=== PATIENT | female | born 1940 | race Caucasian/White ===

== ENCOUNTER 2018-01-03 07:45 | Inpatient (IN) | payer MEDICARE, OTHER ==
[2018-01-03] VITALS (14 sets, daily range): BP systolic 96–169; BP diastolic 56–86
[~2018-01-03] VITALS: Ht 167.6 cm; Wt 75.6 kg
[2018-01-03] MEDS ORDERED: FENTANYL-0.9 % NACL/PF 100 ML IV PRN (09:19)
[2018-01-03] MEDS ORDERED: sodium phosphate inj. 15 MMOL in dextrose 5%-water 150 ML IV PRN (09:20)
[2018-01-03] MEDS ORDERED: ondansetron/PF 4mg/2ml inj IV PRN (09:20)
[2018-01-03] MEDS ORDERED: potassium Cl 20 mEq SR tablet PO PRN ×2 (09:20)
[2018-01-03] MEDS ORDERED: magnesium 4gm in 100ml NS 100 ML IV PRN (09:20)
[2018-01-03] MEDS ORDERED: magnesium Cl slow-release 64mg tablet PO PRN (09:20)
[2018-01-03] MEDS ORDERED: magnesium hydroxide 30ml (MOM) UD suspension PO PRN (09:20)
[2018-01-03] MEDS ORDERED: ipratropium/albuterol 3ml nebule ONE (09:20)
[2018-01-03] MEDS ORDERED: magnesium 2GM in 50ml NS 50 ML IV PRN (09:20)
[2018-01-03] MEDS ORDERED: acetaminophen 325mg tablet PO PRN (09:20)
[2018-01-03] MEDS ORDERED: potassium Cl 40MEQ/NS 500ml 500 ML IV PRN (09:20)
[2018-01-03] MEDS ORDERED: sodium phosphate inj. 30 MMOL in dextrose 5%-water 250 ML IV PRN (09:20)
[2018-01-03] MEDS ORDERED: morphine 4 MG/ML inj SYRINge IV PRN ×2 (09:20)
[2018-01-03] MEDS ORDERED: ipratropium/albuterol 3ml nebule NEB PRN (09:20)
[2018-01-03] MEDS ORDERED: Neutra Phos packet PO PRN (09:20)
[2018-01-03] MEDS ORDERED: linezolid 600mg/300ml PREMIX 300 ML IV ONE (09:30)
[2018-01-03] MEDS ORDERED: magnesium/D5W IVPB 100 ML IV PRN (09:40)
[2018-01-03] MEDS: pantoprazole 40 MG vial IV SCH (09:46)
[2018-01-03] MEDS: methylPREDNISolone sod succ 125mg/2ml vial IV SCH ×3 (09:47→20:00)
[2018-01-03 10:16] LABS: OXYGEN SATURATION (MIXED VEN) 78.3 % (60-80); PO2 MIXED VENOUS (TEMP COR) 41.6 mmHg (35-46)
[2018-01-03 10:16] LABS: ABG BASE EXCESS 5.9 mmol/L (-2.0-3.0); ABG HCO3 32.4 mmol/L (22.0-26.0); ABG OXYGEN SATURATION 94.7 % (95-98); ABG PCO2 (T) 54.8 mmHg (32.0-45.0); FCOHb 1.6 % (0.5-1.5); FMetHb 0.1 % (0.3-1.12); FO2Hb 93.1 % (94-100); MINUTE VOLUME 8 L/min; PEEP 8 cm H2O; RESPIRATORY RATE 20 b/min; RESPIRATORY RATE (OBSERVED) 20 b/min; TOTAL HEMOGLOBIN 14.2 G/dl (12.0-16.0)
[2018-01-03] MEDS ORDERED: CADD PCA waste documentation MC SCH (10:35)
[2018-01-03] MEDS ORDERED: HYDROmorphone/NS 1 mg/ml CADD 50 ML IV SCH (11:00)
[2018-01-03 11:06] LABS: BASOPHILS # (AUTO) 0.1 X10'3 (0-0.2); BASOPHILS % (AUTO) 0.8 % (0-1); EOSINOPHILS % (AUTO) 0 % (0-6); HEMATOCRIT 42.1 % (35.0-45.0); HEMOGLOBIN 13.5 g/dl (12.0-16.0); LYMPHOCYTES # (AUTO) 0.6 X10'3 (1.1-4.8); LYMPHOCYTES % (AUTO) 5.5 % (21-51); MEAN CORPUSCULAR HEMOGLOBIN 28.5 PG (27.0-31.0); MEAN CORPUSCULAR HGB CONC 31.9 % (33.0-36.5); MEAN CORPUSCULAR VOLUME 89.2 FL (78-98); MEAN PLATELET VOLUME 8.7 FL (7.4-10.4); MONOCYTES # (AUTO) 0.7 X10'3 (0-0.9); MONOCYTES % (AUTO) 6.2 % (2-12); NEUTROPHILS # (AUTO) 9.7 X10'3 (1.8-7.7); NEUTROPHILS % (AUTO) 87.5 % (42-75); PLATELET COUNT 159 X10'3 (140-440); RED BLOOD COUNT 4.72 X10'6 (4.20-5.60); RED CELL DISTRIBUTION WIDTH 17.5 % (11.5-14.5); WHITE BLOOD COUNT 11.1 X10'3 (4.5-11.0)
[2018-01-03] MEDS: ipratropium/albuterol 3ml nebule NEB SCH ×4 (11:07→23:26)
[2018-01-03] MEDS: apixaban 2.5mg tablet PO SCH ×2 (11:14→20:00)
[2018-01-03] MEDS ORDERED: morphine/NS 100mg/100ml bag 100 ML IV SCH (11:15)
[2018-01-03 11:19] LABS: ALANINE AMINOTRANSFERASE 24 U/L (12-78); ALBUMIN 2.6 G/DL (3.4-5.0); ALBUMIN/GLOBULIN RATIO 0.7 (1.1-1.5); ALKALINE PHOSPHATASE 86 IU/L (46-116); ANION GAP 4 (8-16); ASPARTATE AMINO TRANSFERASE 24 U/L (10-37); BILIRUBIN,TOTAL 0.5 MG/DL (0.1-1.0); BLOOD UREA NITROGEN 36 MG/DL (7-18); CALCIUM 8.1 MG/DL (8.5-10.1); CHLORIDE 99 MMOL/L (99-107); CREATININE 1.06 MG/DL (0.40-0.90); GLUCOSE 205 MG/DL (70-104); POTASSIUM 3.5 MMOL/L (3.5-5.1); SODIUM 139 MMOL/L (135-145); TOTAL PROTEIN 6.1 G/DL (6.4-8.2); eGFR 50 ML/MIN
[2018-01-03] MEDS: normal saline 1000ml 1,000 ML IV SCH ×2 (11:25→23:09)
[2018-01-03 11:31] LABS: LDL CHOLESTEROL 57 MG/DL (50-100); MAGNESIUM 1.5 MG/DL (1.5-2.4)
[2018-01-03 11:32] LABS: % IRON SATURATION 7 % (11-46); IRON 24 UG/DL (49-151); TOTAL IRON BINDING CAPACITY 347 UG/DL (259-388)
[2018-01-03 11:40] LABS: D-DIMER 3.17 MG/L FEU (0-0.50); INR 1.3 INR; PARTIAL THROMBOPLASTIN TIME 25 SECONDS (22-32)
[2018-01-03 12:13] LABS: HEMOGLOBIN A1C 7.5 % (4.5-6.2)
[2018-01-03 12:18] LABS: FERRITIN 28 NG/ML (8-252)
[2018-01-03 12:44] LABS: PLATELET COUNT 159 X10'3 (140-440)
[2018-01-03] MEDS ORDERED: UNABLE TO OBTAIN (13:17)
[2018-01-03] MEDS ORDERED: NO HOME MEDS (13:44)
[2018-01-03 15:07] LABS: CLARITY,URINE CLEAR (Clear); COLOR,URINE STRAW (Yellow); GLUCOSE, URINE NEGATIVE (Neg); KETONES,URINE NEGATIVE (Neg); LEUKOCYTE ESTERASE ,URINE NEGATIVE (Neg); NITRITES, URINE NEGATIVE (Neg); OCCULT BLOOD,URINE TRACE-INTACT (Neg); PROTEIN,URINE NEGATIVE (Neg); UROBILINOGEN,URINE 0.2 E.U/dL (0.2-1.0)
[2018-01-03 15:13] LABS: UA COLLECTION TYPE FOLEY CATH
[2018-01-03 15:14] LABS: BACTERIA,URINE 1+ /HPF (Neg); MUCUS STRANDS FEW /LPF (Neg); RBC,URINE 0-2 /HPF (0-2); SQUAMOUS EPITHELIAL CELL,UR FEW /LPF (FEW); WBC,URINE 0-4 /HPF (0-4)
[2018-01-03] MEDS: cefepime 1GM/NS ADD-VANTAGE 100 ML IV SCH ×2 (17:26→23:35)
[2018-01-03] MEDS ORDERED: dextrose 50%-water 50ml dispensing syringe IV PRN ×2 (19:55)
[2018-01-03] MEDS ORDERED: glucagon, human recombinant 1mg kit SUBCUT PRN (19:55)
[2018-01-03] MEDS ORDERED: dextrose ORAL solution 15 GM/59 ML bottle PO PRN ×2 (19:55)
[2018-01-03] MEDS ORDERED: MESSAGE TO PHARMACY PO ONE (19:55)
[2018-01-03] MEDS: lactobacillus rhamnosus 10,000 MMU CELLS/CAPSULE PO SCH (20:00)
[2018-01-03] MEDS ORDERED: heparin, porcine 5000 units/ml vial SQ SCH (20:00)
[2018-01-03] MEDS: linezolid 600mg/300ml PREMIX 300 ML IV SCH (20:00)
[2018-01-03] MEDS: docusate sodium 100mg/10ml UD cup PO SCH (20:00)
[2018-01-03] MEDS ORDERED: docusate sod 100mg capsule PO SCH (20:00)
[2018-01-03] MEDS: insulin regular, human vial - multi-dose SQ SCH (20:53)
[2018-01-03] MEDS: insulin glargine (Lantus) pen - multi-dose SQ SCH (20:54)
[2018-01-04] VITALS (24 sets, daily range): BP systolic 82–156; BP diastolic 55–83
[2018-01-04] MEDS: midazolam 100mg in NS 100ml 100 ML IV PRN (01:23)
[2018-01-04] MEDS: methylPREDNISolone sod succ 125mg/2ml vial IV SCH ×4 (01:25→20:06)
[2018-01-04] MEDS ORDERED: normal saline 500ml IV soln 1,000 ML IV ONE (02:15)
[2018-01-04] MEDS ORDERED: albumin (human) 25% 100 ML IV solution IV ONE (02:15)
[2018-01-04] MEDS: insulin regular, human vial - multi-dose SQ SCH ×2 (02:45→20:35)
[2018-01-04 03:12] LABS: BASOPHILS % (AUTO) 0.1 % (0-1); EOSINOPHILS % (AUTO) 0.1 % (0-6); HEMATOCRIT 40.7 % (35.0-45.0); HEMOGLOBIN 12.9 g/dl (12.0-16.0); LYMPHOCYTES # (AUTO) 0.3 X10'3 (1.1-4.8); LYMPHOCYTES % (AUTO) 5.7 % (21-51); MEAN CORPUSCULAR HEMOGLOBIN 28.1 PG (27.0-31.0); MEAN CORPUSCULAR HGB CONC 31.6 % (33.0-36.5); MEAN CORPUSCULAR VOLUME 88.8 FL (78-98); MONOCYTES # (AUTO) 0.1 X10'3 (0-0.9); MONOCYTES % (AUTO) 2.7 % (2-12); NEUTROPHILS # (AUTO) 4.5 X10'3 (1.8-7.7); NEUTROPHILS % (AUTO) 91.4 % (42-75); PLATELET COUNT 155 X10'3 (140-440); RED BLOOD COUNT 4.58 X10'6 (4.20-5.60); WHITE BLOOD COUNT 4.9 X10'3 (4.5-11.0)
[2018-01-04] MEDS: ipratropium/albuterol 3ml nebule NEB SCH ×6 (03:13→23:16)
[2018-01-04 03:14] LABS: ALANINE AMINOTRANSFERASE 20 U/L (12-78); ALBUMIN/GLOBULIN RATIO 0.6 (1.1-1.5); ALKALINE PHOSPHATASE 72 IU/L (46-116); ANION GAP 7 (8-16); ASPARTATE AMINO TRANSFERASE 21 U/L (10-37); BILIRUBIN,TOTAL 0.4 MG/DL (0.1-1.0); BLOOD UREA NITROGEN 29 MG/DL (7-18); BUN/CREATININE RATIO 31.5 (6.6-38.0); CALCIUM 7.5 MG/DL (8.5-10.1); CHLORIDE 101 MMOL/L (99-107); CREATININE 0.92 MG/DL (0.40-0.90); GLUCOSE 253 MG/DL (70-104); MAGNESIUM 1.6 MG/DL (1.5-2.4); PHOSPHORUS 2.8 MG/DL (2.3-4.5); POTASSIUM 3.3 MMOL/L (3.5-5.1); SODIUM 141 MMOL/L (135-145); TOTAL CARBON DIOXIDE 33.4 MMOL/L (24-32); TOTAL PROTEIN 5.2 G/DL (6.4-8.2); eGFR 59 ML/MIN
[2018-01-04 03:25] LABS: ABG BASE EXCESS 6.9 mmol/L (-2.0-3.0); ABG HCO3 32.4 mmol/L (22.0-26.0); ABG OXYGEN SATURATION 96.5 % (95-98); ABG PCO2 (T) 47.2 mmHg (32.0-45.0); ABG PH (T) 7.449 (7.350-7.450); ABG PO2 (T) 80.9 mmHg (83-108); ALLEN'S TEST Positive; FCOHb 0.4 % (0.5-1.5); FMetHb 0.3 % (0.3-1.12); FO2Hb 95.8 % (94-100); MINUTE VOLUME 6 L/min; PATIENT TEMPERATURE 35.7; PEEP 8 cm H2O; RESPIRATORY RATE 20 b/min; RESPIRATORY RATE (OBSERVED) 20 b/min; TOTAL HEMOGLOBIN 13.1 G/dl (12.0-16.0)
[2018-01-04] MEDS: Dextrose 10%-water IV solution 1,000 ML IV SCH (04:37)
[2018-01-04] MEDS ORDERED: potassium Cl 40MEQ/NS 500ml 500 ML IV ONE (04:39)
[2018-01-04] MEDS: pantoprazole 40 MG vial IV SCH (07:16)
[2018-01-04] MEDS: lactobacillus rhamnosus 10,000 MMU CELLS/CAPSULE PO SCH ×2 (07:16→20:06)
[2018-01-04] MEDS: cefepime 1GM/NS ADD-VANTAGE 100 ML IV SCH ×3 (07:16→23:35)
[2018-01-04] MEDS: docusate sodium 100mg/10ml UD cup PO SCH ×2 (07:16→20:06)
[2018-01-04] MEDS: linezolid 600mg/300ml PREMIX 300 ML IV SCH (07:16)
[2018-01-04] MEDS: apixaban 2.5mg tablet PO SCH ×2 (07:17→20:06)
[2018-01-04] MEDS ORDERED: levoFLOXACIN 500mg tablet PO ONE (08:55)
[2018-01-04] MEDS: normal saline 1000ml 1,000 ML IV SCH (09:21)
[2018-01-04] MEDS ORDERED: furosemide 40mg/4ml inj IV ONE (11:05)
[2018-01-04] MEDS: nystatin 15 GM powder TP SCH ×2 (13:00→20:37)
[2018-01-04] MEDS: metoclopramide 5 mg/ml inj IV SCH ×2 (14:00→20:06)
[2018-01-04] MEDS: mineral oil/petrolatum ophthal oint EACHEYE SCH ×2 (14:00→20:06)
[2018-01-04] MEDS: [UNRECOGNIZED DRUG - REMARK] IV SCH ×4 (15:44)
[2018-01-04] MEDS: methylnaltrexone br 12mg/0.6ml inj***SubQ only SQ SCH (15:45)
[2018-01-04] MEDS: potassium Cl 40MEQ/250ML bag 250 ML IV PRN (20:31)
[2018-01-04] MEDS: insulin glargine (Lantus) pen - multi-dose SQ SCH (20:37)
[2018-01-05] VITALS (24 sets, daily range): BP systolic 91–152; BP diastolic 45–76
[2018-01-05] MEDS: FENTANYL-0.9 % NACL/PF 100 ML IV PRN (00:10)
[2018-01-05] MEDS: methylPREDNISolone sod succ 125mg/2ml vial IV SCH ×4 (02:43→20:17)
[2018-01-05] MEDS: mineral oil/petrolatum ophthal oint EACHEYE SCH ×4 (02:43→20:17)
[2018-01-05] MEDS: metoclopramide 5 mg/ml inj IV SCH ×4 (02:43→20:17)
[2018-01-05] MEDS: insulin regular, human vial - multi-dose SQ SCH ×4 (02:56→20:49)
[2018-01-05] MEDS: ipratropium/albuterol 3ml nebule NEB SCH ×6 (03:12→23:21)
[2018-01-05 03:26] LABS: ABG BASE EXCESS 4.2 mmol/L (-2.0-3.0); ABG HCO3 32.3 mmol/L (22.0-26.0); ABG OXYGEN SATURATION 93.8 % (95-98); ABG PCO2 (T) 63.8 mmHg (32.0-45.0); ABG PO2 (T) 75.4 mmHg (83-108); ALLEN'S TEST Positive; FCOHb 0.6 % (0.5-1.5); FMetHb 0.2 % (0.3-1.12); MINUTE VOLUME 5 L/min; PATIENT TEMPERATURE 36.5; PEEP 8 cm H2O; RESPIRATORY RATE 20 b/min; RESPIRATORY RATE (OBSERVED) 20 b/min; TOTAL HEMOGLOBIN 13.7 G/dl (12.0-16.0)
[2018-01-05 04:02] LABS: BASOPHILS % (AUTO) 0.1 % (0-1); EOSINOPHILS % (AUTO) 0 % (0-6); HEMATOCRIT 40.3 % (35.0-45.0); HEMOGLOBIN 12.5 g/dl (12.0-16.0); LYMPHOCYTES # (AUTO) 0.3 X10'3 (1.1-4.8); MEAN CORPUSCULAR HEMOGLOBIN 27.6 PG (27.0-31.0); MEAN CORPUSCULAR VOLUME 88.9 FL (78-98); MEAN PLATELET VOLUME 8.7 FL (7.4-10.4); MONOCYTES # (AUTO) 0.4 X10'3 (0-0.9); MONOCYTES % (AUTO) 5.4 % (2-12); NEUTROPHILS # (AUTO) 6.2 X10'3 (1.8-7.7); NEUTROPHILS % (AUTO) 90.5 % (42-75); PLATELET COUNT 157 X10'3 (140-440); RED BLOOD COUNT 4.54 X10'6 (4.20-5.60); RED CELL DISTRIBUTION WIDTH 17.5 % (11.5-14.5); WHITE BLOOD COUNT 6.9 X10'3 (4.5-11.0)
[2018-01-05 04:18] LABS: ALANINE AMINOTRANSFERASE 19 U/L (12-78); ALBUMIN 2.7 G/DL (3.4-5.0); ALBUMIN/GLOBULIN RATIO 0.9 (1.1-1.5); ALKALINE PHOSPHATASE 58 IU/L (46-116); ANION GAP 4 (8-16); ASPARTATE AMINO TRANSFERASE 18 U/L (10-37); BILIRUBIN,TOTAL 0.4 MG/DL (0.1-1.0); BLOOD UREA NITROGEN 23 MG/DL (7-18); BUN/CREATININE RATIO 28.8 (6.6-38.0); CALCIUM 7.9 MG/DL (8.5-10.1); CHLORIDE 104 MMOL/L (99-107); GLUCOSE 191 MG/DL (70-104); MAGNESIUM 1.7 MG/DL (1.5-2.4); PHOSPHORUS 2.5 MG/DL (2.3-4.5); POTASSIUM 4.4 MMOL/L (3.5-5.1); PREALBUMIN 13.3 MG/DL (19-36); SODIUM 143 MMOL/L (135-145); TOTAL CARBON DIOXIDE 34.6 MMOL/L (24-32); TOTAL PROTEIN 5.6 G/DL (6.4-8.2); eGFR 69 ML/MIN
[2018-01-05] MEDS: Dextrose 10%-water IV solution 1,000 ML IV SCH (05:30)
[2018-01-05] MEDS ORDERED: furosemide 40mg/4ml inj IV SCH (08:00)
[2018-01-05] MEDS: pantoprazole 40 MG vial IV SCH (08:03)
[2018-01-05] MEDS: docusate sodium 100mg/10ml UD cup PO SCH ×2 (08:04→20:17)
[2018-01-05] MEDS: apixaban 2.5mg tablet PO SCH ×2 (08:04→14:53)
[2018-01-05] MEDS: lactobacillus rhamnosus 10,000 MMU CELLS/CAPSULE PO SCH ×2 (08:04→20:17)
[2018-01-05] MEDS: cefepime 1GM/NS ADD-VANTAGE 100 ML IV SCH ×2 (08:05→16:04)
[2018-01-05] MEDS: furosemide 40mg/4ml inj IV SCH ×2 (08:21→16:03)
[2018-01-05] MEDS: nystatin 15 GM powder TP SCH ×3 (08:30→21:03)
[2018-01-05 10:10] LABS: ABG BASE EXCESS 6.2 mmol/L (-2.0-3.0); ABG HCO3 33.6 mmol/L (22.0-26.0); ABG OXYGEN SATURATION 92.8 % (95-98); ABG PCO2 (T) 59.3 mmHg (32.0-45.0); ABG PH (T) 7.369 (7.350-7.450); ALLEN'S TEST Positive; FCOHb 0.8 % (0.5-1.5); FMetHb 0.3 % (0.3-1.12); FO2Hb 91.8 % (94-100); MINUTE VOLUME 7 L/min; PATIENT TEMPERATURE 36.4; PEEP 8 cm H2O; RESPIRATORY RATE 20 b/min; RESPIRATORY RATE (OBSERVED) 20 b/min; TIDAL VOLUME 325 mL; TOTAL HEMOGLOBIN 14.2 G/dl (12.0-16.0)
[2018-01-05] MEDS ORDERED: ipratropium/albuterol 3ml nebule NEB SCH (11:00)
[2018-01-05] MEDS: [UNRECOGNIZED DRUG - REMARK] IV SCH ×4 (12:21)
[2018-01-05] MEDS: levoFLOXACIN 500mg tablet PO SCH (12:25)
[2018-01-05] MEDS: insulin glargine (Lantus) pen - multi-dose SQ SCH (20:51)
[2018-01-06] VITALS (26 sets, daily range): BP systolic 103–170; BP diastolic 59–93
[2018-01-06] MEDS: furosemide 40mg/4ml inj IV SCH ×4 (00:27→23:12)
[2018-01-06] MEDS: cefepime 1GM/NS ADD-VANTAGE 100 ML IV SCH ×4 (00:28→23:12)
[2018-01-06] MEDS: metoclopramide 5 mg/ml inj IV SCH ×4 (02:03→20:56)
[2018-01-06] MEDS: mineral oil/petrolatum ophthal oint EACHEYE SCH ×4 (02:03→20:56)
[2018-01-06] MEDS: methylPREDNISolone sod succ 125mg/2ml vial IV SCH ×4 (02:03→20:56)
[2018-01-06] MEDS: insulin regular, human vial - multi-dose SQ SCH ×4 (02:14→21:01)
[2018-01-06] MEDS: ipratropium/albuterol 3ml nebule NEB SCH ×6 (02:56→23:17)
[2018-01-06 03:06] LABS: BASOPHILS % (AUTO) 0 % (0-1); EOSINOPHILS % (AUTO) 0 % (0-6); HEMATOCRIT 44.7 % (35.0-45.0); LYMPHOCYTES # (AUTO) 0.3 X10'3 (1.1-4.8); LYMPHOCYTES % (AUTO) 3.3 % (21-51); MEAN CORPUSCULAR HEMOGLOBIN 27.7 PG (27.0-31.0); MEAN CORPUSCULAR HGB CONC 31.3 % (33.0-36.5); MEAN CORPUSCULAR VOLUME 88.5 FL (78-98); MEAN PLATELET VOLUME 8.7 FL (7.4-10.4); MONOCYTES # (AUTO) 0.4 X10'3 (0-0.9); MONOCYTES % (AUTO) 3.9 % (2-12); NEUTROPHILS # (AUTO) 8.8 X10'3 (1.8-7.7); NEUTROPHILS % (AUTO) 92.8 % (42-75); PLATELET COUNT 188 X10'3 (140-440); RED BLOOD COUNT 5.05 X10'6 (4.20-5.60); RED CELL DISTRIBUTION WIDTH 17.9 % (11.5-14.5); WHITE BLOOD COUNT 9.5 X10'3 (4.5-11.0)
[2018-01-06 03:21] LABS: ALANINE AMINOTRANSFERASE 18 U/L (12-78); ALBUMIN 2.8 G/DL (3.4-5.0); ALBUMIN/GLOBULIN RATIO 0.8 (1.1-1.5); ALKALINE PHOSPHATASE 64 IU/L (46-116); ANION GAP 6 (8-16); ASPARTATE AMINO TRANSFERASE 16 U/L (10-37); BILIRUBIN,TOTAL 0.6 MG/DL (0.1-1.0); BLOOD UREA NITROGEN 38 MG/DL (7-18); BUN/CREATININE RATIO 50.7 (6.6-38.0); CALCIUM 7.9 MG/DL (8.5-10.1); CHLORIDE 99 MMOL/L (99-107); CREATININE 0.75 MG/DL (0.40-0.90); GLUCOSE 137 MG/DL (70-104); MAGNESIUM 1.7 MG/DL (1.5-2.4); PHOSPHORUS 2.6 MG/DL (2.3-4.5); SODIUM 142 MMOL/L (135-145); TOTAL CARBON DIOXIDE 36.7 MMOL/L (24-32); TOTAL PROTEIN 6.1 G/DL (6.4-8.2); eGFR 75 ML/MIN
[2018-01-06 03:31] LABS: ABG BASE EXCESS 9.8 mmol/L (-2.0-3.0); ABG HCO3 37.1 mmol/L (22.0-26.0); ABG OXYGEN SATURATION 93.3 % (95-98); ABG PH (T) 7.402 (7.350-7.450); ABG PO2 (T) 70.4 mmHg (83-108); ALLEN'S TEST Positive; FCOHb 0.8 % (0.5-1.5); FMetHb 0.5 % (0.3-1.12); FO2Hb 92.1 % (94-100); MINUTE VOLUME 7 L/min; PATIENT TEMPERATURE 37.2; PEEP 8 cm H2O; RESPIRATORY RATE 20 b/min; RESPIRATORY RATE (OBSERVED) 20 b/min; TIDAL VOLUME 325 mL; TOTAL HEMOGLOBIN 14.8 G/dl (12.0-16.0)
[2018-01-06] MEDS ORDERED: potassium Cl 40MEQ/250ML bag 250 ML IV ONE (03:57)
[2018-01-06] MEDS: midazolam 100mg in NS 100ml 100 ML IV PRN (04:12)
[2018-01-06] MEDS: FENTANYL-0.9 % NACL/PF 100 ML IV PRN (04:12)
[2018-01-06] MEDS: methylnaltrexone br 12mg/0.6ml inj***SubQ only SQ SCH (06:43)
[2018-01-06] MEDS: docusate sodium 100mg/10ml UD cup PO SCH ×2 (06:43→19:56)
[2018-01-06] MEDS: potassium Cl 40MEQ/250ML bag 250 ML IV PRN (07:17)
[2018-01-06] MEDS: lactobacillus rhamnosus 10,000 MMU CELLS/CAPSULE PO SCH ×2 (07:17→20:56)
[2018-01-06] MEDS: nystatin 15 GM powder TP SCH ×3 (07:17→21:04)
[2018-01-06] MEDS: pantoprazole 40 MG vial IV SCH (07:17)
[2018-01-06] MEDS: apixaban 2.5mg tablet PO SCH ×2 (08:00→20:57)
[2018-01-06] MEDS: [UNRECOGNIZED DRUG - REMARK] IV SCH ×4 (08:47)
[2018-01-06 11:39] LABS: POTASSIUM 3.4 MMOL/L (3.5-5.1)
[2018-01-06 11:41] LABS: TROPONIN I 0.64 NG/ML (0.0-0.05)
[2018-01-06] MEDS: levoFLOXACIN 500mg tablet PO SCH (11:54)
[2018-01-06] MEDS: insulin glargine (Lantus) pen - multi-dose SQ SCH (21:03)
[2018-01-07] VITALS (24 sets, daily range): BP systolic 98–164; BP diastolic 49–89
[2018-01-07 00:57] LABS: BASOPHILS # (AUTO) 0.1 X10'3 (0-0.2); BASOPHILS % (AUTO) 0.8 % (0-1); EOSINOPHILS % (AUTO) 0 % (0-6); HEMATOCRIT 44.2 % (35.0-45.0); HEMOGLOBIN 13.7 g/dl (12.0-16.0); LYMPHOCYTES # (AUTO) 0.3 X10'3 (1.1-4.8); LYMPHOCYTES % (AUTO) 4.6 % (21-51); MEAN CORPUSCULAR HEMOGLOBIN 27.7 PG (27.0-31.0); MEAN CORPUSCULAR VOLUME 89.3 FL (78-98); MEAN PLATELET VOLUME 8.8 FL (7.4-10.4); MONOCYTES # (AUTO) 0.5 X10'3 (0-0.9); MONOCYTES % (AUTO) 7.6 % (2-12); NEUTROPHILS # (AUTO) 6.2 X10'3 (1.8-7.7); PLATELET COUNT 173 X10'3 (140-440); RED BLOOD COUNT 4.95 X10'6 (4.20-5.60); WHITE BLOOD COUNT 7.1 X10'3 (4.5-11.0)
[2018-01-07 00:58] LABS: ALANINE AMINOTRANSFERASE 18 U/L (12-78); ALBUMIN 2.6 G/DL (3.4-5.0); ALBUMIN/GLOBULIN RATIO 0.9 (1.1-1.5); ALKALINE PHOSPHATASE 63 IU/L (46-116); ANION GAP 2 (8-16); ASPARTATE AMINO TRANSFERASE 19 U/L (10-37); BILIRUBIN,TOTAL 0.5 MG/DL (0.1-1.0); BLOOD UREA NITROGEN 44 MG/DL (7-18); CALCIUM 8.1 MG/DL (8.5-10.1); CHLORIDE 99 MMOL/L (99-107); GLUCOSE 147 MG/DL (70-104); MAGNESIUM 1.6 MG/DL (1.5-2.4); PHOSPHORUS 2.5 MG/DL (2.3-4.5); SODIUM 144 MMOL/L (135-145); TOTAL PROTEIN 5.6 G/DL (6.4-8.2); eGFR 69 ML/MIN
[2018-01-07 01:03] LABS: POTASSIUM 2.5 MMOL/L (3.5-5.1)
[2018-01-07 01:04] LABS: TOTAL CARBON DIOXIDE 42.6 MMOL/L (24-32)
[2018-01-07] MEDS ORDERED: potassium Cl 40MEQ/250ML bag 500 ML IV ONE (01:24)
[2018-01-07] MEDS: mineral oil/petrolatum ophthal oint EACHEYE SCH ×4 (01:59→20:28)
[2018-01-07] MEDS: metoclopramide 5 mg/ml inj IV SCH ×4 (02:00→20:29)
[2018-01-07] MEDS: methylPREDNISolone sod succ 125mg/2ml vial IV SCH ×4 (02:00→20:29)
[2018-01-07 02:06] LABS: ABG HCO3 33.5 mmol/L (22.0-26.0); ABG PCO2 (T) 50.2 mmHg (32.0-45.0); ABG PH (T) 7.443 (7.350-7.450); ABG PO2 (T) 64.9 mmHg (83-108); ALLEN'S TEST Positive; FCOHb 0.9 % (0.5-1.5); FMetHb 0.2 % (0.3-1.12); MINUTE VOLUME 7 L/min; PATIENT TEMPERATURE 37.2; PEEP 8 cm H2O; RESPIRATORY RATE 20 b/min; RESPIRATORY RATE (OBSERVED) 20 b/min; TIDAL VOLUME 325 mL; TOTAL HEMOGLOBIN 14.6 G/dl (12.0-16.0)
[2018-01-07] MEDS: insulin regular, human vial - multi-dose SQ SCH ×4 (02:21→20:57)
[2018-01-07] MEDS: ipratropium/albuterol 3ml nebule NEB SCH ×6 (03:17→23:10)
[2018-01-07] MEDS: potassium Cl 40MEQ/250ML bag 250 ML IV PRN ×3 (03:50→12:02)
[2018-01-07] MEDS: lactobacillus rhamnosus 10,000 MMU CELLS/CAPSULE PO SCH ×2 (07:18→20:28)
[2018-01-07] MEDS: pantoprazole 40 MG vial IV SCH (07:18)
[2018-01-07] MEDS: furosemide 40mg/4ml inj IV SCH ×2 (07:18→16:05)
[2018-01-07] MEDS: docusate sodium 100mg/10ml UD cup PO SCH ×2 (07:19→20:00)
[2018-01-07] MEDS: cefepime 1GM/NS ADD-VANTAGE 100 ML IV SCH ×2 (07:19→16:05)
[2018-01-07] MEDS: nystatin 15 GM powder TP SCH ×3 (07:19→20:28)
[2018-01-07] MEDS: apixaban 2.5mg tablet PO SCH ×2 (07:19→20:28)
[2018-01-07] MEDS: [UNRECOGNIZED DRUG - REMARK] IV SCH ×4 (08:20)
[2018-01-07] MEDS: levoFLOXACIN 500mg tablet PO SCH (11:42)
[2018-01-07] MEDS: insulin glargine (Lantus) pen - multi-dose SQ SCH (20:58)
[2018-01-07] MEDS: midazolam 100mg in NS 100ml 100 ML IV PRN (22:41)
[2018-01-07] MEDS: FENTANYL-0.9 % NACL/PF 100 ML IV PRN (22:43)
[2018-01-08] VITALS (24 sets, daily range): BP systolic 118–168; BP diastolic 47–90
[2018-01-08] MEDS: cefepime 1GM/NS ADD-VANTAGE 100 ML IV SCH ×4 (00:41→23:23)
[2018-01-08] MEDS: furosemide 40mg/4ml inj IV SCH ×4 (00:41→23:22)
[2018-01-08] MEDS: mineral oil/petrolatum ophthal oint EACHEYE SCH ×4 (02:57→20:47)
[2018-01-08] MEDS: metoclopramide 5 mg/ml inj IV SCH ×4 (02:57→20:47)
[2018-01-08] MEDS: methylPREDNISolone sod succ 125mg/2ml vial IV SCH ×4 (02:57→20:47)
[2018-01-08] MEDS: insulin regular, human vial - multi-dose SQ SCH ×4 (03:27→21:11)
[2018-01-08 03:50] LABS: ABG BASE EXCESS 18.2 mmol/L (-2.0-3.0); ABG HCO3 44.8 mmol/L (22.0-26.0); ABG OXYGEN SATURATION 91.3 % (95-98); ABG PCO2 (T) 58.2 mmHg (32.0-45.0); ABG PH (T) 7.504 (7.350-7.450); ABG PO2 (T) 59.5 mmHg (83-108); FCOHb 1.1 % (0.5-1.5); FMetHb 0.1 % (0.3-1.12); FO2Hb 90.2 % (94-100); MINUTE VOLUME 7 L/min; PEEP 8 cm H2O; RESPIRATORY RATE 20 b/min; RESPIRATORY RATE (OBSERVED) 20 b/min; TIDAL VOLUME 325 mL; TOTAL HEMOGLOBIN 14.8 G/dl (12.0-16.0)
[2018-01-08] MEDS: ipratropium/albuterol 3ml nebule NEB SCH ×6 (03:50→23:18)
[2018-01-08 04:15] LABS: BASOPHILS % (AUTO) 0 % (0-1); EOSINOPHILS % (AUTO) 0.5 % (0-6); HEMATOCRIT 43.9 % (35.0-45.0); HEMOGLOBIN 13.8 g/dl (12.0-16.0); LYMPHOCYTES # (AUTO) 0.4 X10'3 (1.1-4.8); LYMPHOCYTES % (AUTO) 5.5 % (21-51); MEAN CORPUSCULAR HEMOGLOBIN 27.5 PG (27.0-31.0); MEAN CORPUSCULAR HGB CONC 31.3 % (33.0-36.5); MEAN CORPUSCULAR VOLUME 87.6 FL (78-98); MEAN PLATELET VOLUME 8.9 FL (7.4-10.4); MONOCYTES # (AUTO) 0.6 X10'3 (0-0.9); MONOCYTES % (AUTO) 7.5 % (2-12); NEUTROPHILS # (AUTO) 6.7 X10'3 (1.8-7.7); NEUTROPHILS % (AUTO) 86.5 % (42-75); PLATELET COUNT 156 X10'3 (140-440); RED BLOOD COUNT 5.01 X10'6 (4.20-5.60); RED CELL DISTRIBUTION WIDTH 17.6 % (11.5-14.5); WHITE BLOOD COUNT 7.7 X10'3 (4.5-11.0)
[2018-01-08 04:29] LABS: ALANINE AMINOTRANSFERASE 23 U/L (12-78); ALBUMIN 2.4 G/DL (3.4-5.0); ALBUMIN/GLOBULIN RATIO 0.8 (1.1-1.5); ALKALINE PHOSPHATASE 67 IU/L (46-116); ANION GAP 3 (8-16); ASPARTATE AMINO TRANSFERASE 20 U/L (10-37); BILIRUBIN,TOTAL 0.5 MG/DL (0.1-1.0); BLOOD UREA NITROGEN 45 MG/DL (7-18); BUN/CREATININE RATIO 58.4 (6.6-38.0); CALCIUM 8.4 MG/DL (8.5-10.1); CHLORIDE 99 MMOL/L (99-107); CREATININE 0.77 MG/DL (0.40-0.90); GLUCOSE 202 MG/DL (70-104); MAGNESIUM 1.5 MG/DL (1.5-2.4); PHOSPHORUS 2.5 MG/DL (2.3-4.5); SODIUM 146 MMOL/L (135-145); TOTAL PROTEIN 5.4 G/DL (6.4-8.2); eGFR 72 ML/MIN
[2018-01-08 04:39] LABS: POTASSIUM 2.9 MMOL/L (3.5-5.1); TOTAL CARBON DIOXIDE 44.4 MMOL/L (24-32)
[2018-01-08] MEDS ORDERED: potassium Cl 40MEQ/250ML bag 500 ML IV ONE (05:00)
[2018-01-08] MEDS: potassium Cl 40MEQ/250ML bag 250 ML IV PRN ×3 (05:11→16:36)
[2018-01-08] MEDS: methylnaltrexone br 12mg/0.6ml inj***SubQ only SQ SCH (08:00)
[2018-01-08] MEDS: nystatin 15 GM powder TP SCH ×3 (08:15→20:47)
[2018-01-08] MEDS: pantoprazole 40 MG vial IV SCH (08:15)
[2018-01-08] MEDS: docusate sodium 100mg/10ml UD cup PO SCH ×2 (08:16→20:00)
[2018-01-08] MEDS: apixaban 2.5mg tablet PO SCH ×2 (08:16→20:47)
[2018-01-08] MEDS: lactobacillus rhamnosus 10,000 MMU CELLS/CAPSULE PO SCH ×2 (08:16→20:47)
[2018-01-08] MEDS: [UNRECOGNIZED DRUG - REMARK] IV SCH ×4 (10:08)
[2018-01-08] MEDS: levoFLOXACIN 500mg tablet PO SCH (11:25)
[2018-01-08] MEDS: FENTANYL-0.9 % NACL/PF 100 ML IV PRN (14:20)
[2018-01-08] MEDS: midazolam 100mg in NS 100ml 100 ML IV PRN (17:07)
[2018-01-08] MEDS: insulin glargine (Lantus) pen - multi-dose SQ SCH (21:06)
[2018-01-08] MEDS ORDERED: potassium Cl oral solution 20 MEQ/15 ML PO PRN (22:25)
[2018-01-08] MEDS: potassium Cl oral solution 20 MEQ/15 ML PO SCH (23:23)
[2018-01-08] MEDS: potassium Cl oral solution 20 MEQ/15 ML PO PRN (23:24)
[2018-01-09] VITALS (23 sets, daily range): BP systolic 93–169; BP diastolic 47–98
[2018-01-09] MEDS: metoclopramide 5 mg/ml inj IV SCH ×4 (02:00→20:00)
[2018-01-09] MEDS: methylPREDNISolone sod succ 125mg/2ml vial IV SCH ×4 (02:27→20:17)
[2018-01-09] MEDS: mineral oil/petrolatum ophthal oint EACHEYE SCH ×4 (02:27→20:17)
[2018-01-09] MEDS: insulin regular, human vial - multi-dose SQ SCH ×4 (02:38→20:22)
[2018-01-09] MEDS: potassium Cl oral solution 20 MEQ/15 ML PO PRN ×2 (03:14→07:31)
[2018-01-09 03:15] LABS: BASOPHILS % (AUTO) 0 % (0-1); EOSINOPHILS # (AUTO) 0.2 X10'3 (0-0.9); EOSINOPHILS % (AUTO) 0.8 % (0-6); HEMATOCRIT 47.1 % (35.0-45.0); HEMOGLOBIN 14.8 g/dl (12.0-16.0); LYMPHOCYTES # (AUTO) 0.5 X10'3 (1.1-4.8); LYMPHOCYTES % (AUTO) 2.1 % (21-51); MEAN CORPUSCULAR HEMOGLOBIN 27.9 PG (27.0-31.0); MEAN CORPUSCULAR HGB CONC 31.5 % (33.0-36.5); MEAN CORPUSCULAR VOLUME 88.6 FL (78-98); MEAN PLATELET VOLUME 8.8 FL (7.4-10.4); MONOCYTES # (AUTO) 1.2 X10'3 (0-0.9); MONOCYTES % (AUTO) 4.9 % (2-12); NEUTROPHILS % (AUTO) 92.2 % (42-75); PLATELET COUNT 176 X10'3 (140-440); RED BLOOD COUNT 5.32 X10'6 (4.20-5.60); WHITE BLOOD COUNT 23.9 X10'3 (4.5-11.0)
[2018-01-09 03:40] LABS: ALANINE AMINOTRANSFERASE 24 U/L (12-78); ALBUMIN 2.5 G/DL (3.4-5.0); ALBUMIN/GLOBULIN RATIO 0.8 (1.1-1.5); ALKALINE PHOSPHATASE 72 IU/L (46-116); ANION GAP 1 (8-16); ASPARTATE AMINO TRANSFERASE 20 U/L (10-37); BILIRUBIN,TOTAL 0.6 MG/DL (0.1-1.0); BLOOD UREA NITROGEN 47 MG/DL (7-18); BUN/CREATININE RATIO 72.3 (6.6-38.0); CALCIUM 8.9 MG/DL (8.5-10.1); CHLORIDE 99 MMOL/L (99-107); CREATININE 0.65 MG/DL (0.40-0.90); GLUCOSE 126 MG/DL (70-104); MAGNESIUM 1.5 MG/DL (1.5-2.4); PHOSPHORUS 2.1 MG/DL (2.3-4.5); POTASSIUM 3.5 MMOL/L (3.5-5.1); SODIUM 145 MMOL/L (135-145); TOTAL PROTEIN 5.8 G/DL (6.4-8.2); eGFR 88 ML/MIN
[2018-01-09] MEDS: ipratropium/albuterol 3ml nebule NEB SCH ×6 (03:50→23:05)
[2018-01-09] MEDS: FENTANYL-0.9 % NACL/PF 100 ML IV PRN ×2 (03:53→20:18)
[2018-01-09 04:00] LABS: TOTAL CARBON DIOXIDE 44.8 MMOL/L (24-32)
[2018-01-09 04:53] LABS: PREALBUMIN 28.3 MG/DL (19-36)
[2018-01-09 05:06] LABS: ABG BASE EXCESS 17.8 mmol/L (-2.0-3.0); ABG HCO3 44.1 mmol/L (22.0-26.0); ABG OXYGEN SATURATION 90.6 % (95-98); ABG PCO2 (T) 56.2 mmHg (32.0-45.0); ABG PH (T) 7.513 (7.350-7.450); FCOHb 1.2 % (0.5-1.5); FMetHb 0.1 % (0.3-1.12); FO2Hb 89.4 % (94-100); MINUTE VOLUME 7 L/min; PATIENT TEMPERATURE 37.2; PEEP 8 cm H2O; RESPIRATORY RATE 20 b/min; RESPIRATORY RATE (OBSERVED) 20 b/min; TIDAL VOLUME 325 mL; TOTAL HEMOGLOBIN 15.2 G/dl (12.0-16.0)
[2018-01-09 05:29] LABS: ANISOCYTOSIS 1+; PLATELET ESTIMATE NORMAL; TARGET CELLS FEW; TOTAL CELLS COUNTED 100
[2018-01-09 05:30] LABS: ELLIPTOCYTES FEW
[2018-01-09] MEDS: apixaban 2.5mg tablet PO SCH ×2 (07:30→20:18)
[2018-01-09] MEDS: pantoprazole 40 MG vial IV SCH (07:30)
[2018-01-09] MEDS: [UNRECOGNIZED DRUG - REMARK] IV SCH ×4 (07:30)
[2018-01-09] MEDS: cefepime 1GM/NS ADD-VANTAGE 100 ML IV SCH ×2 (07:30→15:48)
[2018-01-09] MEDS: lactobacillus rhamnosus 10,000 MMU CELLS/CAPSULE PO SCH ×2 (07:30→20:18)
[2018-01-09] MEDS: potassium Cl oral solution 20 MEQ/15 ML PO SCH ×2 (07:31→15:48)
[2018-01-09] MEDS: docusate sodium 100mg/10ml UD cup PO SCH ×2 (07:31→20:00)
[2018-01-09] MEDS: nystatin 15 GM powder TP SCH ×3 (07:31→20:17)
[2018-01-09] MEDS: furosemide 40mg/4ml inj IV SCH (08:00)
[2018-01-09] MEDS: levoFLOXACIN 500mg tablet PO SCH (11:18)
[2018-01-09] MEDS: normal saline 1000ml 1,000 ML IV SCH ×2 (11:19→22:03)
[2018-01-09] MEDS: spironolactone 25 MG tablet PO SCH ×2 (12:40→20:18)
[2018-01-09] MEDS: acetaminophen 325mg tablet PO PRN (16:32)
[2018-01-09] MEDS: insulin glargine (Lantus) pen - multi-dose SQ SCH (20:22)
[2018-01-10] VITALS (24 sets, daily range): BP systolic 110–149; BP diastolic 48–79
[2018-01-10] MEDS: potassium Cl oral solution 20 MEQ/15 ML PO SCH ×3 (00:02→16:00)
[2018-01-10] MEDS: cefepime 1GM/NS ADD-VANTAGE 100 ML IV SCH ×3 (00:02→16:22)
[2018-01-10] MEDS: metoclopramide 5 mg/ml inj IV SCH ×2 (02:00→07:25)
[2018-01-10] MEDS: mineral oil/petrolatum ophthal oint EACHEYE SCH ×4 (02:17→20:00)
[2018-01-10] MEDS: methylPREDNISolone sod succ 125mg/2ml vial IV SCH ×2 (02:17→07:24)
[2018-01-10] MEDS: insulin regular, human vial - multi-dose SQ SCH ×3 (02:20→16:28)
[2018-01-10 02:41] LABS: BASOPHILS % (AUTO) 0 % (0-1); EOSINOPHILS # (AUTO) 0.3 X10'3 (0-0.9); EOSINOPHILS % (AUTO) 1.1 % (0-6); HEMATOCRIT 42.9 % (35.0-45.0); HEMOGLOBIN 13.4 g/dl (12.0-16.0); LYMPHOCYTES # (AUTO) 0.9 X10'3 (1.1-4.8); LYMPHOCYTES % (AUTO) 3.5 % (21-51); MEAN CORPUSCULAR HEMOGLOBIN 27.6 PG (27.0-31.0); MEAN CORPUSCULAR HGB CONC 31.2 % (33.0-36.5); MEAN CORPUSCULAR VOLUME 88.4 FL (78-98); MONOCYTES # (AUTO) 1.4 X10'3 (0-0.9); MONOCYTES % (AUTO) 5.6 % (2-12); NEUTROPHILS # (AUTO) 22.3 X10'3 (1.8-7.7); NEUTROPHILS % (AUTO) 89.8 % (42-75); PLATELET COUNT 165 X10'3 (140-440); RED BLOOD COUNT 4.85 X10'6 (4.20-5.60); RED CELL DISTRIBUTION WIDTH 17.8 % (11.5-14.5); WHITE BLOOD COUNT 24.9 X10'3 (4.5-11.0)
[2018-01-10 02:57] LABS: ALANINE AMINOTRANSFERASE 18 U/L (12-78); ALBUMIN 2.1 G/DL (3.4-5.0); ALBUMIN/GLOBULIN RATIO 0.7 (1.1-1.5); ALKALINE PHOSPHATASE 68 IU/L (46-116); ANION GAP 2 (8-16); ASPARTATE AMINO TRANSFERASE 16 U/L (10-37); BILIRUBIN,TOTAL 0.5 MG/DL (0.1-1.0); BLOOD UREA NITROGEN 49 MG/DL (7-18); BUN/CREATININE RATIO 73.1 (6.6-38.0); CALCIUM 8.5 MG/DL (8.5-10.1); CHLORIDE 103 MMOL/L (99-107); CREATININE 0.67 MG/DL (0.40-0.90); GLUCOSE 162 MG/DL (70-104); MAGNESIUM 1.9 MG/DL (1.5-2.4); PHOSPHORUS 3.3 MG/DL (2.3-4.5); POTASSIUM 4.7 MMOL/L (3.5-5.1); SODIUM 144 MMOL/L (135-145); TOTAL CARBON DIOXIDE 39.3 MMOL/L (24-32); TOTAL PROTEIN 5.2 G/DL (6.4-8.2); eGFR 85 ML/MIN
[2018-01-10] MEDS: ipratropium/albuterol 3ml nebule NEB SCH ×5 (02:59→20:32)
[2018-01-10 03:46] LABS: ABG BASE EXCESS 9.8 mmol/L (-2.0-3.0); ABG HCO3 36.9 mmol/L (22.0-26.0); ABG OXYGEN SATURATION 92.5 % (95-98); ABG PCO2 (T) 60.7 mmHg (32.0-45.0); ABG PH (T) 7.403 (7.350-7.450); ABG PO2 (T) 66.9 mmHg (83-108); ALLEN'S TEST Positive; FCOHb 1.3 % (0.5-1.5); FMetHb 0.1 % (0.3-1.12); FO2Hb 91.2 % (94-100); MINUTE VOLUME 7 L/min; PATIENT TEMPERATURE 37.3; PEEP 5 cm H2O; RESPIRATORY RATE (OBSERVED) 17 b/min; TOTAL HEMOGLOBIN 14.5 G/dl (12.0-16.0)
[2018-01-10] MEDS: docusate sodium 100mg/10ml UD cup PO SCH ×2 (07:23→20:00)
[2018-01-10] MEDS: methylnaltrexone br 12mg/0.6ml inj***SubQ only SQ SCH (07:23)
[2018-01-10] MEDS: pantoprazole 40 MG vial IV SCH (07:25)
[2018-01-10] MEDS: spironolactone 25 MG tablet PO SCH (07:27)
[2018-01-10] MEDS: lactobacillus rhamnosus 10,000 MMU CELLS/CAPSULE PO SCH ×2 (07:30→20:00)
[2018-01-10] MEDS: apixaban 2.5mg tablet PO SCH ×2 (07:30→20:00)
[2018-01-10] MEDS: [UNRECOGNIZED DRUG - REMARK] IV SCH ×4 (07:30)
[2018-01-10] MEDS: nystatin 15 GM powder TP SCH ×3 (07:30→21:39)
[2018-01-10] MEDS: FENTANYL-0.9 % NACL/PF 100 ML IV PRN (09:58)
[2018-01-10] MEDS: levoFLOXACIN 500mg tablet PO SCH (11:00)
[2018-01-10] MEDS: dexmedetomidin/NS 400mcg/100ml 100 ML IV SCH (12:04)
[2018-01-10 12:31] LABS: C DIFF ANTIGEN POSITIVE (NEGATIVE); C DIFF SPECIMEN=DIARRHEA? ACCEPTABLE; C DIFFICILE TOXINS A&B POSITIVE (Neg)
[2018-01-10] MEDS ORDERED: dexmedetomidin/NS 400mcg/100ml 100 ML IV SCH (13:00)
[2018-01-10] MEDS ORDERED: racepinephrine 11.25mg/0.5ml nebule NEB PRN (13:30)
[2018-01-10] MEDS ORDERED: ipratropium/albuterol 3ml nebule NEB PRN (13:30)
[2018-01-10] MEDS: normal saline 1000ml 1,000 ML IV SCH (13:45)
[2018-01-10] MEDS: methylPREDNISolone sod succ/PF 40mg inj. IV SCH ×2 (14:00→21:33)
[2018-01-10 16:11] LABS: ABG BASE EXCESS 8.9 mmol/L (-2.0-3.0); ABG HCO3 36.5 mmol/L (22.0-26.0); ABG PCO2 (T) 63.6 mmHg (32.0-45.0); ABG PH (T) 7.378 (7.350-7.450); ABG PO2 (T) 73.6 mmHg (83-108); ALLEN'S TEST Positive; FCOHb 1.2 % (0.5-1.5); FLOW 15 L/min; FMetHb 0.2 % (0.3-1.12); FO2Hb 92.7 % (94-100); PATIENT TEMPERATURE 37.4; TOTAL HEMOGLOBIN 14.6 G/dl (12.0-16.0)
[2018-01-10] MEDS: insulin glargine (Lantus) pen - multi-dose SQ SCH (21:56)
[2018-01-11] VITALS (16 sets, daily range): BP systolic 118–176; BP diastolic 60–93
[2018-01-11] MEDS: cefepime 1GM/NS ADD-VANTAGE 100 ML IV SCH ×2 (00:30→09:25)
[2018-01-11] MEDS: mineral oil/petrolatum ophthal oint EACHEYE SCH ×4 (00:31→19:35)
[2018-01-11] MEDS: dexmedetomidin/NS 400mcg/100ml 100 ML IV SCH (00:31)
[2018-01-11] MEDS: ipratropium/albuterol 3ml nebule NEB SCH ×4 (02:08→21:03)
[2018-01-11] MEDS: insulin Lispro (HumaLOG) vial - multi-dose SQ SCH ×2 (02:10→19:46)
[2018-01-11] MEDS: methylPREDNISolone sod succ/PF 40mg inj. IV SCH ×4 (02:11→19:35)
[2018-01-11] MEDS: normal saline 1000ml 1,000 ML IV SCH ×2 (02:13→16:25)
[2018-01-11 03:05] LABS: ALANINE AMINOTRANSFERASE 25 U/L (12-78); ALBUMIN 2.4 G/DL (3.4-5.0); ALBUMIN/GLOBULIN RATIO 0.7 (1.1-1.5); ALKALINE PHOSPHATASE 60 IU/L (46-116); ANION GAP 2 (8-16); ASPARTATE AMINO TRANSFERASE 13 U/L (10-37); BILIRUBIN,TOTAL 0.6 MG/DL (0.1-1.0); BLOOD UREA NITROGEN 50 MG/DL (7-18); BUN/CREATININE RATIO 75.8 (6.6-38.0); CALCIUM 8.6 MG/DL (8.5-10.1); CHLORIDE 104 MMOL/L (99-107); CREATININE 0.66 MG/DL (0.40-0.90); GLUCOSE 145 MG/DL (70-104); PHOSPHORUS 4.6 MG/DL (2.3-4.5); POTASSIUM 5.2 MMOL/L (3.5-5.1); SODIUM 143 MMOL/L (135-145); TOTAL CARBON DIOXIDE 37.1 MMOL/L (24-32); TOTAL PROTEIN 5.7 G/DL (6.4-8.2); eGFR 86 ML/MIN
[2018-01-11 03:10] LABS: BASOPHILS % (AUTO) 0 % (0-1); EOSINOPHILS % (AUTO) 0.1 % (0-6); HEMATOCRIT 45.8 % (35.0-45.0); HEMOGLOBIN 14.4 g/dl (12.0-16.0); LYMPHOCYTES # (AUTO) 0.9 X10'3 (1.1-4.8); LYMPHOCYTES % (AUTO) 4.5 % (21-51); MEAN CORPUSCULAR HGB CONC 31.4 % (33.0-36.5); MEAN PLATELET VOLUME 9.4 FL (7.4-10.4); MONOCYTES # (AUTO) 0.5 X10'3 (0-0.9); MONOCYTES % (AUTO) 2.7 % (2-12); NEUTROPHILS # (AUTO) 18.3 X10'3 (1.8-7.7); NEUTROPHILS % (AUTO) 92.7 % (42-75); PLATELET COUNT 169 X10'3 (140-440); RED BLOOD COUNT 5.15 X10'6 (4.20-5.60); RED CELL DISTRIBUTION WIDTH 17.7 % (11.5-14.5); WHITE BLOOD COUNT 19.8 X10'3 (4.5-11.0)
[2018-01-11 04:06] LABS: ANISOCYTOSIS 2+; PLATELET ESTIMATE NORMAL; TOTAL CELLS COUNTED 100
[2018-01-11] MEDS: lactobacillus rhamnosus 10,000 MMU CELLS/CAPSULE PO SCH ×3 (08:00→19:35)
[2018-01-11] MEDS: potassium Cl oral solution 20 MEQ/15 ML PO SCH ×4 (08:00→23:14)
[2018-01-11] MEDS: docusate sodium 100mg/10ml UD cup PO SCH ×3 (08:00→19:39)
[2018-01-11] MEDS: pantoprazole 40 MG vial IV SCH (09:14)
[2018-01-11] MEDS: nystatin 15 GM powder TP SCH ×3 (09:14→19:39)
[2018-01-11] MEDS: apixaban 2.5mg tablet PO SCH ×2 (09:15→19:36)
[2018-01-11] MEDS: [UNRECOGNIZED DRUG - REMARK] IV SCH ×4 (09:25)
[2018-01-11] MEDS: levoFLOXACIN 500mg tablet PO SCH (12:45)
[2018-01-11] MEDS: vancomcyin 250mg capsules PO SCH ×2 (14:47→19:36)
[2018-01-11] MEDS: acetaminophen 325mg tablet PO PRN (19:39)
[2018-01-11] MEDS: HYDROcodone/acetaminophen 5mg/325mg tablet PO PRN (21:28)
[2018-01-11] MEDS: insulin glargine (Lantus) pen - multi-dose SQ SCH (21:32)
[2018-01-12] VITALS (19 sets, daily range): BP systolic 132–189; BP diastolic 64–121
[2018-01-12] MEDS: mineral oil/petrolatum ophthal oint EACHEYE SCH ×4 (02:00→20:00)
[2018-01-12] MEDS: methylPREDNISolone sod succ/PF 40mg inj. IV SCH ×3 (02:01→14:41)
[2018-01-12] MEDS: HYDROcodone/acetaminophen 5mg/325mg tablet PO PRN ×4 (02:02→20:44)
[2018-01-12] MEDS: vancomcyin 250mg capsules PO SCH ×4 (02:02→20:09)
[2018-01-12] MEDS ORDERED: haloperidol lactate 5mg/ml inj IM ONE (02:50)
[2018-01-12] MEDS: ipratropium/albuterol 3ml nebule NEB SCH ×4 (03:00→21:17)
[2018-01-12] MEDS: normal saline 1000ml 1,000 ML IV SCH ×2 (03:10→16:32)
[2018-01-12 04:14] LABS: BASOPHILS % (AUTO) 0 % (0-1); EOSINOPHILS % (AUTO) 0 % (0-6); HEMATOCRIT 44.5 % (35.0-45.0); HEMOGLOBIN 13.9 g/dl (12.0-16.0); LYMPHOCYTES # (AUTO) 0.4 X10'3 (1.1-4.8); LYMPHOCYTES % (AUTO) 1.7 % (21-51); MEAN CORPUSCULAR HEMOGLOBIN 27.7 PG (27.0-31.0); MEAN CORPUSCULAR HGB CONC 31.3 % (33.0-36.5); MEAN CORPUSCULAR VOLUME 88.6 FL (78-98); MEAN PLATELET VOLUME 9.1 FL (7.4-10.4); MONOCYTES % (AUTO) 4.6 % (2-12); NEUTROPHILS # (AUTO) 21.1 X10'3 (1.8-7.7); NEUTROPHILS % (AUTO) 93.7 % (42-75); PLATELET COUNT 177 X10'3 (140-440); RED BLOOD COUNT 5.03 X10'6 (4.20-5.60); RED CELL DISTRIBUTION WIDTH 18.1 % (11.5-14.5); WHITE BLOOD COUNT 22.5 X10'3 (4.5-11.0)
[2018-01-12 04:34] LABS: ALANINE AMINOTRANSFERASE 27 U/L (12-78); ALBUMIN 2.6 G/DL (3.4-5.0); ALBUMIN/GLOBULIN RATIO 0.7 (1.1-1.5); ALKALINE PHOSPHATASE 69 IU/L (46-116); ASPARTATE AMINO TRANSFERASE 16 U/L (10-37); BILIRUBIN,TOTAL 0.6 MG/DL (0.1-1.0); BLOOD UREA NITROGEN 59 MG/DL (7-18); BUN/CREATININE RATIO 61.5 (6.6-38.0); CALCIUM 8.8 MG/DL (8.5-10.1); CHLORIDE 102 MMOL/L (99-107); CREATININE 0.96 MG/DL (0.40-0.90); GLUCOSE 142 MG/DL (70-104); PHOSPHORUS 4.7 MG/DL (2.3-4.5); PREALBUMIN 16.9 MG/DL (19-36); TOTAL CARBON DIOXIDE 32.3 MMOL/L (24-32); TOTAL PROTEIN 6.1 G/DL (6.4-8.2); eGFR 56 ML/MIN
[2018-01-12 04:35] LABS: ANION GAP 6 (8-16); SODIUM 140 MMOL/L (135-145)
[2018-01-12 04:55] LABS: TOTAL CELLS COUNTED 100
[2018-01-12 04:56] LABS: PLATELET ESTIMATE NORMAL
[2018-01-12 04:57] LABS: LARGE PLATELETS FEW; TOXIC GRANULATION 1+; TOXIC VACUOLATION 1+
[2018-01-12] MEDS ORDERED: hydrALAZINE 20mg/ml inj. IV ONE (05:05)
[2018-01-12] MEDS: potassium Cl oral solution 20 MEQ/15 ML PO SCH (08:00)
[2018-01-12] MEDS: methylnaltrexone br 12mg/0.6ml inj***SubQ only SQ SCH (08:00)
[2018-01-12] MEDS: lactobacillus rhamnosus 10,000 MMU CELLS/CAPSULE PO SCH ×2 (09:17→20:09)
[2018-01-12] MEDS: docusate sodium 100mg/10ml UD cup PO SCH ×2 (09:17→20:00)
[2018-01-12] MEDS: pantoprazole 40 MG vial IV SCH (09:17)
[2018-01-12] MEDS: apixaban 2.5mg tablet PO SCH ×2 (09:17→20:09)
[2018-01-12] MEDS: nystatin 15 GM powder TP SCH ×3 (09:18→20:26)
[2018-01-12] MEDS: [UNRECOGNIZED DRUG - REMARK] IV SCH ×4 (09:43)
[2018-01-12] MEDS: levoFLOXACIN 500mg tablet PO SCH (11:36)
[2018-01-12] MEDS: diltiazem 30mg tablet PO SCH ×2 (14:41→20:09)
[2018-01-12] MEDS: insulin glargine (Lantus) pen - multi-dose SQ SCH (20:20)
[2018-01-13] VITALS (15 sets, daily range): BP systolic 127–177; BP diastolic 56–87
[2018-01-13] MEDS: vancomcyin 250mg capsules PO SCH ×3 (01:36→13:37)
[2018-01-13] MEDS: diltiazem 30mg tablet PO SCH ×2 (01:36→07:42)
[2018-01-13] MEDS: mineral oil/petrolatum ophthal oint EACHEYE SCH ×3 (01:37→13:27)
[2018-01-13 03:14] LABS: BASOPHILS % (AUTO) 0 % (0-1); EOSINOPHILS % (AUTO) 0.1 % (0-6); HEMATOCRIT 44.1 % (35.0-45.0); HEMOGLOBIN 13.6 g/dl (12.0-16.0); LYMPHOCYTES # (AUTO) 0.5 X10'3 (1.1-4.8); LYMPHOCYTES % (AUTO) 2.6 % (21-51); MEAN CORPUSCULAR HEMOGLOBIN 27.2 PG (27.0-31.0); MEAN CORPUSCULAR HGB CONC 30.9 % (33.0-36.5); MEAN CORPUSCULAR VOLUME 88.1 FL (78-98); MEAN PLATELET VOLUME 9.5 FL (7.4-10.4); NEUTROPHILS # (AUTO) 18.5 X10'3 (1.8-7.7); NEUTROPHILS % (AUTO) 92.3 % (42-75); PLATELET COUNT 169 X10'3 (140-440); RED BLOOD COUNT 5.01 X10'6 (4.20-5.60); RED CELL DISTRIBUTION WIDTH 16.9 % (11.5-14.5)
[2018-01-13 03:31] LABS: ALANINE AMINOTRANSFERASE 29 U/L (12-78); ALBUMIN 2.5 G/DL (3.4-5.0); ALBUMIN/GLOBULIN RATIO 0.8 (1.1-1.5); ALKALINE PHOSPHATASE 68 IU/L (46-116); ANION GAP 5 (8-16); ASPARTATE AMINO TRANSFERASE 16 U/L (10-37); BILIRUBIN,TOTAL 0.6 MG/DL (0.1-1.0); BLOOD UREA NITROGEN 40 MG/DL (7-18); CALCIUM 8.6 MG/DL (8.5-10.1); CHLORIDE 99 MMOL/L (99-107); CREATININE 0.72 MG/DL (0.40-0.90); GLUCOSE 188 MG/DL (70-104); MAGNESIUM 1.8 MG/DL (1.5-2.4); PHOSPHORUS 3.2 MG/DL (2.3-4.5); POTASSIUM 4.8 MMOL/L (3.5-5.1); SODIUM 136 MMOL/L (135-145); TOTAL CARBON DIOXIDE 31.6 MMOL/L (24-32); TOTAL PROTEIN 5.7 G/DL (6.4-8.2); eGFR 78 ML/MIN
[2018-01-13 03:32] LABS: BUN/CREATININE RATIO 55.6 (6.6-38.0)
[2018-01-13] MEDS: ipratropium/albuterol 3ml nebule NEB SCH ×2 (04:27→08:21)
[2018-01-13] MEDS: normal saline 1000ml 1,000 ML IV SCH (05:58)
[2018-01-13] MEDS: docusate sodium 100mg/10ml UD cup PO SCH (07:04)
[2018-01-13] MEDS: pantoprazole 40 MG vial IV SCH (07:41)
[2018-01-13] MEDS: lactobacillus rhamnosus 10,000 MMU CELLS/CAPSULE PO SCH (07:41)
[2018-01-13] MEDS: apixaban 2.5mg tablet PO SCH (07:42)
[2018-01-13] MEDS: nystatin 15 GM powder TP SCH ×2 (08:00→13:37)
[2018-01-13] MEDS ORDERED: thiamine 100mg tablet PO SCH (08:00)
[2018-01-13] MEDS ORDERED: multivitamins, therapeutics tablet PO SCH (08:00)
[2018-01-13] MEDS ORDERED: folic acid 1mg tablet PO SCH (08:00)
[2018-01-13] MEDS ORDERED: predniSONE 20 mg tablet PO SCH (08:30)
[2018-01-13] MEDS: insulin Lispro (HumaLOG) vial - multi-dose SQ SCH (09:01)
[2018-01-13] MEDS ORDERED: PANT-47 PO (11:39)
[2018-01-13] MEDS ORDERED: DILT30TA5 PO (11:39)
[2018-01-13] MEDS ORDERED: LACT1CAP26 PO (11:39)
[2018-01-13] MEDS ORDERED: VANC250C4 PO (11:39)
[2018-01-13] MEDS ORDERED: MULT-1179 PO (11:39)
[2018-01-13] MEDS ORDERED: APIX2.5T PO (11:39)
[2018-01-13] MEDS ORDERED: THI100T PO (11:39)
[2018-01-13] MEDS ORDERED: PRED20TA PO (11:39)
[2018-01-13] MEDS ORDERED: FOLI1TAB16 PO (11:39)
[2018-01-13] MEDS ORDERED: IPRA3AMP9 NEB ×2 (11:39)
[2018-01-13 11:46] LABS: ABG BASE EXCESS 0.6 mmol/L (-2.0-3.0); ABG HCO3 28.7 mmol/L (22.0-26.0); ABG OXYGEN SATURATION 91.5 % (95-98); ABG PCO2 (T) 61.7 mmHg (32.0-45.0); ABG PH (T) 7.286 (7.350-7.450); ABG PO2 (T) 65.8 mmHg (83-108); ALLEN'S TEST Positive; FCOHb 1.4 % (0.5-1.5); FLOW 6 L/min; FMetHb 0.1 % (0.3-1.12); FO2Hb 90.1 % (94-100); TOTAL HEMOGLOBIN 14.5 G/dl (12.0-16.0)
== END 2018-01-13 15:10 | DRG 870 ==
LOC: ICU 2S 09:01
PROVIDERS: ADMIT Internal Medicine Critical Care Medicine; ATTEND Internal Medicine Critical Care Medicine
PROC: 5A1955Z Respiratory Ventilation, Greater than 96 Consecutive Hours (ICD-10-PCS; principal; 2018-01-03)
PROC: 0W993ZZ Drainage of Right Pleural Cavity, Percutaneous Approach (ICD-10-PCS; 2018-01-06)
PROC: 5A09357 Assistance with Respiratory Ventilation, Less than 24 Consecutive Hours, Continuous Positive Airway Pressure (ICD-10-PCS; 2018-01-13)
DX: A41.9 Sepsis, unspecified organism (principal); J96.20 Acute and chronic respiratory failure, unspecified whether with hypoxia or hypercapnia; J15.9 Unspecified bacterial pneumonia; J44.0 Chronic obstructive pulmonary disease with (acute) lower respiratory infection; L03.90 Cellulitis, unspecified; A04.72 Enterocolitis due to Clostridium difficile, not specified as recurrent; E87.3 Alkalosis; E87.2 Acidosis; J44.1 Chronic obstructive pulmonary disease with (acute) exacerbation; N17.9 Acute kidney failure, unspecified; E87.5 Hyperkalemia; F40.00 Agoraphobia, unspecified; I08.1 Rheumatic disorders of both mitral and tricuspid valves; I71.4 Abdominal aortic aneurysm, without rupture; I73.9 Peripheral vascular disease, unspecified; F17.210 Nicotine dependence, cigarettes, uncomplicated; Z79.01 Long term (current) use of anticoagulants
CPT/HCPCS: 32555; 36415; 36600; 71045; 74018; 80053; 81001; 82436; 82728; 82803; 82810; 82948; 83036; 83540; 83550; 83605; 83721; 83735; 83880; 84100; 84132; 84134; 84145; 84443; 84484; 85018; 85025; 85379; 85384; 85610; 85730; 87070; 87088; 87324; 87449; 92616; 93005; 93306; 93922; 93925; 93978; 94002; 94003; 94640; 94660; 94760; 97110; 97162; 97530; A6212; A6213; A6222; A6257; A6449; A7015; C1758; C9113; J0360; J0692; J1630; J1815; J1940; J2020; J2250; J2270; J2765; J2920; J2930; J3411; J3480; J3490; J7030; J7060; J7512; P9047